=== PATIENT | female | born 1995 | race Caucasian/White ===

== ENCOUNTER 2019-02-14 16:55 | Emergency (ER) | payer OTHER ==
[2019-02-14 17:05] VITALS: BP 122/62
[2019-02-14] MEDS ORDERED: CEPHALEXIN 500 MG CAPSULE PO ONE (17:27)
--- NOTE | 2019-02-14 17:28 | ER Document Report ---
HPI - HPI Patient complains to provider of: abscess face Time Seen by Provider: 02/14/19 17:17 Pain Level: 3 Context: 23-year-old female presents the emergency department for concern for an abscess after "anti-eyebrow" placement about a month ago. She says when it was placed on her right maxillary area of her cheek it became infected so she removed it approximately 3 weeks ago. Since that she noticed a little hard nodule there and then over the last couple of days it has started swelling, has become red. She says her tried to "pop yesterday and she thinks it made it worse. She denies fevers or chills, vision changes, eye entrapment, neck stiffness, headache, any other concerning symptoms. - REPRODUCTIVE Reproductive: DENIES: : Past Medical History - Social History Smoking Status: Never Smoker Frequency of alcohol use: None Drug Abuse: None Family History: None Patient has suicidal ideation: No Patient has homicidal ideation: No Renal/ Medical History: Denies: Hx Peritoneal Dialysis Psychiatric Medical History: Reports: Hx Depression Vertical Provider Document - CONSTITUTIONAL Notes: PHYSICAL EXAMINATION: Reviewed vital signs and charting by RN GENERAL: Alert, interacts well. No acute distress. HEAD: Normocephalic, atraumatic. EYES: Pupils equal and round. Extraocular movements intact. ENT: Oral mucosa moist, tongue midline. NECK: Full range of motion. Trachea midline. LUNGS: Clear to auscultation bilaterally, no wheezes, rales, or rhonchi. No resp iratory distress. HEART: Regular rate and rhythm. No murmur ABDOMEN: soft, non-tender. No distention. Bowel sounds present EXTREMITIES: Moves all 4 extremities spontaneously. No edema, No cyanosis. PSYCH: Normal affect, normal mood. SKIN: Warm, dry, normal turgor. 3 mm x 2 mm raised red area just below the right eye with no discharge. Area is fluctuant - INFECTION CONTROL TRAVEL OUTSIDE OF THE [place] IN LAST 30 DAYS: No Course - Re-evaluation Re-evalutation: 02/14/19 17:25 ID removed a small area of fluctuance and was able to express purulent discharge from the area approximately 1 mL. A wound culture was sent. Plan is to place her on Keflex and she is been given strict return precautions. - Vital Signs Vital signs: Temp Pulse Resp BP Pulse Ox 99.0 F 93 16 122/62 99 02/14/19 17:01 02/14/19 17:01 02/14/19 17:01 02/14/19 17:01 02/14/19 17:01 Discharge - Discharge Clinical Impression: Abscess Condition: Good Disposition: HOME, SELF-CARE Additional Instructions: You were seen in the emergency department this afternoon for a small abscess/very mild cellulitis. We have placed you on Keflex 500 mg that you will take 4 times per day for 5 days. We also sent some of the purulent discharge to the lab for culture. If it does grow something that is resistant to Keflex she will be contacted by the culture nurse and we will adjust treatment as needed. If you develop fevers, eye entrapment i.e. you cannot move your eye, the area of redness and swelling gets worse after being on antibiotics for 72 hours, or you have any other concerning symptoms please immediately return to the emergency department.
== END 2019-02-14 17:47 | disposition home or self-care (01) ==
LOC: ER 16:55
PROC: 0H91XZZ Drainage of Face Skin, External Approach (ICD-10-PCS; principal; 2019-02-14)
DX: L02.01 Cutaneous abscess of face (principal)
CPT/HCPCS: 87070; 87075; 87205; 99282

== ENCOUNTER 2019-10-11 04:55 | Inpatient (IN) | payer OTHER ==
[2019-10-10 08:55] LABS: ABSOLUTE EOSINOPHILS # (AUTO) 0.1 10^3/uL (0.0-0.6); ABSOLUTE LYMPHOCYTES (AUTO) 1.4 10^3/uL (0.5-4.7); ABSOLUTE MONOCYTES (AUTO) 0.3 10^3/uL (0.1-1.4); ABSOLUTE NEUT (AUTO) 4.4 10^3/uL (1.7-8.2); BASOPHILS % (AUTO) 0.5 % (0-2); HEMATOCRIT 28.6 % (36.0-47.0); HEMOGLOBIN 9.6 g/dL (12.0-15.5); LYMPHOCYTES % (AUTO) 21.9 % (13-45); MEAN CORPUSCULAR HEMOGLOBIN 28.6 pg (27.0-33.4); MEAN CORPUSCULAR HGB CONC 33.5 g/dL (32.0-36.0); MEAN CORPUSCULAR VOLUME 85 fl (80-97); MONOCYTES % (AUTO) 5.6 % (3-13); PLATELET COUNT 197 10^3/uL (150-450); RED BLOOD COUNT 3.35 10^6/uL (3.72-5.28); RED CELL DISTRIBUTION WIDTH 15.3 % (11.5-14.0); TOTAL CELLS COUNTED % (AUTO) 100 %; WHITE BLOOD COUNT 6.2 10^3/uL (4.0-10.5)
[2019-10-10 08:59] LABS: APPEARANCE,URINE CLOUDY; BILIRUBIN,URINE NEGATIVE (NEGATIVE); GLUCOSE, URINE 50 mg/dL (NEGATIVE); KETONES,URINE TRACE mg/dL (NEGATIVE); LEUKOCYTE ESTERASE,URINE LARGE (NEGATIVE); NITRITE,URINE NEGATIVE (NEGATIVE); PROTEIN,URINE 30 mg/dL (NEGATIVE); URINE SPECIFIC GRAVITY 1.023
[2019-10-10 09:03] LABS: COLOR,URINE YELLOW
[2019-10-10 09:21] LABS: URINE AMPHETAMINES SCREEN NEGATIVE; URINE BARBITURATES SCREEN NEGATIVE; URINE COCAINE SCREEN NEGATIVE; URINE MARIJUANA (THC) SCREEN NEGATIVE; URINE METHADONE SCREEN NEGATIVE; URINE PHENCYCLIDINE SCREEN NEGATIVE
[2019-10-10 09:42] LABS: URINE BENZODIAZEPINES SCREEN UNCONFIRMED POSITIVE
[2019-10-11] MEDS ORDERED: LIDOCAINE 0.5% INJ-PF (5 MG/ML) 50 ML SDV SUBCUT PRN (05:00)
[2019-10-11] MEDS ORDERED: CEFAZOLIN SODIUM 2 GM in DEXTROSE 5%-WATER 100 ML IV PRN (05:00)
[2019-10-11] MEDS: LACTATED RINGERS 1000 ML IV PRN ×2 (05:30→17:42)
[2019-10-11] MEDS ORDERED: OXYTOCIN 10 UNIT/ML VIAL ONE (07:28)
[2019-10-11] MEDS ORDERED: PHENYLEPHRINE HCL INJ/PF 10 MG/1 ML SDV ONE ×2 (07:28→07:29)
[2019-10-11] MEDS ORDERED: KETOROLAC TROMETHAMINE INJ/PF 30 MG/1 ML SDV ONE (07:28)
[2019-10-11] MEDS ORDERED: OXYTOCIN/NORMAL SALINE 20 UNIT/1,000 ML RTUINJ ONE (07:28)
[2019-10-11] MEDS ORDERED: FENTANYL CITRATE INJ/PF 100 MCG/2 ML AMPUL ONE (07:28)
[2019-10-11] MEDS ORDERED: ACETAMINOPHEN 1,000 MG/100 ML RTUPB IV ONE (07:29)
[2019-10-11] MEDS ORDERED: ONDANSETRON HCL INJ/PF 4 MG/2 ML SDV ONE (07:29)
[2019-10-11] MEDS ORDERED: MORPHINE SULFATE 10 MG/ML INJ IV PRN (08:31)
[2019-10-11] MEDS ORDERED: FENTANYL CITRATE INJ/PF 100 MCG/2 ML AMPUL IV PRN ×3 (08:31)
[2019-10-11] MEDS ORDERED: MEPERIDINE HCL/PF INJ 25 MG/1 ML DISP.SYRIN IV PRN (08:31)
[2019-10-11] MEDS ORDERED: DIPHENHYDRAMINE HCL 50 MG/ML VIAL IV PRN (08:31)
[2019-10-11] MEDS ORDERED: PROMETHAZINE HCL INJ 25 MG/1 ML VIAL IV PRN ×2 (08:31→08:43)
[2019-10-11] MEDS ORDERED: RINGERS SOLUTION,LACTATED 1,000 ML IV PRN (08:43)
[2019-10-11] MEDS ORDERED: DIPH/PERTUSS(ACELL)/TETANUS VAC/PF 0.5 ML SYR (>=10YO) IM PRN (08:43)
[2019-10-11] MEDS ORDERED: SIMETHICONE 80 MG TAB.CHEW PO PRN (08:43)
[2019-10-11] MEDS ORDERED: OXYCODONE-ACETAMINOPHEN 5-325 MG TABLET PO PRN (08:43)
[2019-10-11] MEDS ORDERED: OXYTOCIN/NORMAL SALINE 20 UNIT/1,000 ML RTUINJ IV PRN (08:43)
[2019-10-11] MEDS ORDERED: ACETAMINOPHEN 325 MG TABLET PO PRN (08:43)
[2019-10-11] MEDS ORDERED: MEASLES,MUMPS&RUBELLA VACC/PF 0.5 ML VIAL SUBCUT PRN (08:43)
--- NOTE | 2019-10-11 08:50 | Operative Report ---
Operative Report DATE OF SURGERY: 10/11/19 PREOPERATIVE DIAGNOSIS: IUP @ 39 wks, history of with HSV infection POSTOPERATIVE DIAGNOSIS: Same OPERATION: Primary low transverse hysterotomy section SURGEON: ESA RODRIGUEZ ANESTHESIA: Spinal COMPLICATIONS: None ESTIMATED BLOOD LOSS: 600 cc INTRAOPERATIVE FINDINGS: female in cephalic presentation PROCEDURE: PROCEDURE IN DETAIL: The patient was taken to the operating room, prepared and draped in a normal sterile fashion in a supine position with a leftward tilt. A transverse skin incision was made with a scalpel and carried through to the underlying layer of fascia with the same scalpel. The fascia was excised in the midline and extended laterally with Natalee. The fascia was then dissected from the rectus muscle sharply with Natalee and the rectus muscle was divided and the peritoneal cavity was entered sharply with the same Metzenbaum. With good visualization of the bladder and the uterus the bladder blade was inserted. The hysterotomy was nicked with a scalpel and extended laterally with surgeon finger fraction. The infant was then delivered atraumatically. The nose and mouth were suctioned with a suction bulb, the cord was clamped and cut and handed off to awaiting pediatricians. Cord blood was collected. The placenta was removed manually. The uterus was exteriorized and cleared of clots and debris. The hysterotomy was closed with 0 Monocryl in a running, locked fashion. A second layer of the same suture was used to imbricate to ensure hemostasis. The uterus was returned to the abdomen and peritoneal cavity was cleared of clots and debris. The rectus muscle and peritoneum were repaired with mattress stitch of 2-0 Chromic. The fascia was closed with 0-Vicryl. The subcutaneous layer was closed with plain catgut and the skin was closed with 4-0 Vicryl. The patient tolerated the procedure well. Sponge, lap, and needle counts correct x2 and the patient was taken to recovery in stable condition.
[2019-10-11] MEDS ORDERED: ACETAMINOPHEN 1,000 MG/100 ML RTUPB IV PRN (10:00)
[2019-10-11] MEDS ORDERED: MORPHINE SULFATE 10 MG/ML INJ ONE (10:22)
[2019-10-11] MEDS: MORPHINE SULFATE 10 MG/ML INJ IV PRN ×2 (10:25→14:11)
[2019-10-11] MEDS: DOCUSATE SODIUM 100 MG CAPSULE PO SCH ×2 (11:38→17:40)
[2019-10-11] MEDS: PRENATAL VITAMIN W DHA CAPSULE PO SCH (11:38)
[2019-10-11] MEDS: IBUPROFEN 800 MG TABLET PO SCH ×2 (11:57→17:57)
[2019-10-11] MEDS: OXYCODONE-ACETAMINOPHEN 5-325 MG TABLET PO PRN ×3 (12:31→22:26)
[2019-10-11] MEDS: KETOROLAC TROMETHAMINE INJ/PF 30 MG/1 ML SDV IV SCH ×2 (15:27→21:17)
[2019-10-12] MEDS: IBUPROFEN 800 MG TABLET PO SCH ×4 (03:21→21:35)
[2019-10-12] MEDS: OXYCODONE-ACETAMINOPHEN 5-325 MG TABLET PO PRN ×4 (03:51→17:34)
[2019-10-12 07:20] LABS: HEMATOCRIT 26.3 % (36.0-47.0); HEMOGLOBIN 8.9 g/dL (12.0-15.5); MEAN CORPUSCULAR HEMOGLOBIN 28.7 pg (27.0-33.4); MEAN CORPUSCULAR HGB CONC 33.7 g/dL (32.0-36.0); MEAN CORPUSCULAR VOLUME 85 fl (80-97); PLATELET COUNT 164 10^3/uL (150-450); RED BLOOD COUNT 3.09 10^6/uL (3.72-5.28); WHITE BLOOD COUNT 7.5 10^3/uL (4.0-10.5)
[2019-10-12] MEDS ORDERED: FERRIC CARBOXYMALTOSE INJ 750 MG/15 ML VIAL IV ONE (09:39)
[2019-10-12] MEDS ORDERED: FERRIC CARBOXYMALTOSE 750 MG in NORMAL SALINE 250 ML IV ONE (11:00)
[2019-10-12] MEDS: DOCUSATE SODIUM 100 MG CAPSULE PO SCH ×2 (11:13→17:34)
[2019-10-12] MEDS: PRENATAL VITAMIN W DHA CAPSULE PO SCH (11:13)
--- NOTE | 2019-10-12 14:10 | PDOC PROGRESS REPORT ---
Subjective-OB Progress Note for:: 10/12/19 Subjective: 23yo G2 now P2 s/p primary ppd1. Pt. ambulating and voiding without difficulty. Denies SOB/dizziness or other concerns. Baby in NICU Physical Exam (OB) Vital Signs: Temp Pulse Resp BP Pulse Ox 97.5 F 68 16 142/62 H 96 10/12/19 07:17 10/12/19 07:17 10/12/19 07:17 10/12/19 07:17 10/12/19 07:17 Intake & Output 10/11/19 10/12/19 10/13/19 06:59 06:59 06:59 Intake Total 1000 Output Total 2640 Balance 1000 -2640 - General General Appearance: Appears well In distress: None - PIH/Pre-Eclampsia Clonus: Negative Headache: Absent Epigastric Pain: No Visual Changes: No - Dressing Removed: No Incision: Dressing Closure Type: opsite - Lochia Lochia Amount: Moderate 25-50 ml Lochia Color: Rubra/Red - Abdomen Description: Soft Hernia Present: No Fundal Description: Midline Fundal Height: u/u - u/2 - Respiratory Respiratory Status: No respiratory distress - Extremities Upper extremity: Normal inspection Lower extremities: Normal inspection - Neurological Cognition: Normal Orientation: AAOx4 - Psychological Associated symptoms: Normal affect, Normal mood Objective-Diagnostic Laboratory: 10/12/19 06:50 10/12/19 06:50 WBC 7.5 RBC 3.09 L Hgb 8.9 L Hct 26.3 L MCV 85 MCH 28.7 MCHC 33.7 RDW 15.0 H Plt Count 164 Assessment and Plan(PN) - Assessment and Plan (1) Status post primary low transverse section Is this a current diagnosis for this admission?: Yes Plan: Routine pp care (2) Anemia complicating , third trimester Is this a current diagnosis for this admission?: Yes Plan: increase dietary iron and FeSO4 BID. IV Iron ordered (3) Elevated blood pressure reading Is this a current diagnosis for this admission?: Yes Plan: continue to monitor for s/s of pre-e - Time Spent with Patient Time with patient: Less than 15 minutes Medications reviewed and adjusted accordingly: Yes - Disposition Anticipated Discharge: Home Within: within 24 hours
[2019-10-13] MEDS: IBUPROFEN 800 MG TABLET PO SCH ×2 (02:36→09:57)
[2019-10-13] MEDS: OXYCODONE-ACETAMINOPHEN 5-325 MG TABLET PO PRN (04:34)
[2019-10-13] MEDS: PRENATAL VITAMIN W DHA CAPSULE PO SCH (09:56)
[2019-10-13] MEDS: DOCUSATE SODIUM 100 MG CAPSULE PO SCH (09:56)
--- NOTE | 2019-10-13 10:21 | PDOC DISCHARGE SUMMARY ---
Impression - Admit/DC Date/PCP Admission Date/Primary Care Provider: 10/11/19 04:55 Discharge Date: 10/13/19 - Discharge Diagnosis (1) Elevated blood pressure reading Is this a current diagnosis for this admission?: Yes (2) Status post primary low transverse section Is this a current diagnosis for this admission?: Yes (3) Pre-eclampsia affecting childbirth Is this a current diagnosis for this admission?: No (4) Anemia complicating , third trimester Is this a current diagnosis for this admission?: Yes - Additional Information Resuscitation Status: Full Code Discharge Diet: Regular Discharge Activity: Balance Activity w/Rest, No Lifting Over 10 Pounds, No Lifting/Push/Pulling, Pelvic Rest, No tub bath Prescriptions: Docusate Sodium [Colace 100 mg Capsule] 100 mg PO BID #60 capsule Ibuprofen [Motrin 800 mg Tablet] 800 mg PO Q8HP PRN #60 tablet PRN Reason: Oxycodone HCl/Acetaminophen [Percocet 5-325 mg Tablet] 1 tab PO Q4HP PRN #30 tablet PRN Reason: Home Medications: Sertraline HCl [Zoloft 50 mg Tablet] 100 mg PO DAILY 10/05/19 Docusate Sodium [Colace 100 mg Capsule] 100 mg PO BID #60 capsule 10/13/19 Ibuprofen [Motrin 800 mg Tablet] 800 mg PO Q8HP PRN #60 tablet 10/13/19 Oxycodone HCl/Acetaminophen [Percocet 5-325 mg Tablet] 1 tab PO Q4HP PRN #30 tablet 10/13/19 Results Laboratory Results: WBC 7.5 10^3/uL (4.0-10.5) 10/12/19 06:50 RBC 3.09 10^6/uL (3.72-5.28) L 10/12/19 06:50 Hgb 8.9 g/dL (12.0-15.5) L 10/12/19 06:50 Hct 26.3 % (36.0-47.0) L 10/12/19 06:50 MCV 85 fl (80-97) 10/12/19 06:50 MCH 28.7 pg (27.0-33.4) 10/12/19 06:50 MCHC 33.7 g/dL (32.0-36.0) 10/12/19 06:50 RDW 15.0 % (11.5-14.0) H 10/12/19 06:50 Plt Count 164 10^3/uL (150-450) 10/12/19 06:50 Lymph % (Auto) 21.9 % (13-45) 10/10/19 08:12 [place] % (Auto) 5.6 % (3-13) 10/10/19 08:12 Eos % (Auto) 1.0 % (0-6) 10/10/19 08:12 Baso % (Auto) 0.5 % (0-2) 10/10/19 08:12 Absolute Neuts (auto) 4.4 10^3/uL (1.7-8.2) 10/10/19 08:12 Absolute Lymphs (auto) 1.4 10^3/uL (0.5-4.7) 10/10/19 08:12 Absolute Monos (auto) 0.3 10^3/uL (0.1-1.4) 10/10/19 08:12 Absolute Eos (auto) 0.1 10^3/uL (0.0-0.6) 10/10/19 08:12 Absolute Basos (auto) 0.0 10^3/uL (0.0-0.2) 10/10/19 08:12 Seg Neutrophils % 71.0 % (42-78) 10/10/19 08:12 Urine Color YELLOW 10/10/19 08:30 Urine Appearance CLOUDY 10/10/19 08:30 Urine pH 6.0 (5.0-9.0) 10/10/19 08:30 Ur Specific [place] 1.023 10/10/19 08:30 Urine Protein 30 mg/dL (NEGATIVE) H 10/10/19 08:30 Urine Glucose (UA) 50 mg/dL (NEGATIVE) H 10/10/19 08:30 Urine Ketones TRACE mg/dL (NEGATIVE) H 10/10/19 08:30 Urine Blood NEGATIVE (NEGATIVE) 10/10/19 08:30 Urine Nitrite NEGATIVE (NEGATIVE) 10/10/19 08:30 Urine Bilirubin NEGATIVE (NEGATIVE) 10/10/19 08:30 Urine Urobilinogen 2.0 mg/dL (<2.0) H 10/10/19 08:30 Ur Leukocyte Esterase LARGE (NEGATIVE) H 10/10/19 08:30 Urine WBC (Auto) 51 /HPF 10/10/19 08:30 Urine RBC (Auto) 2 /HPF 10/10/19 08:30 Urine Bacteria (Auto) TRACE /HPF 10/10/19 08:30 Squamous Epi Cells Auto 30 /HPF 10/10/19 08:30 Urine Mucus (Auto) OCC /LPF 10/10/19 08:30 Urine Ascorbic Acid 20 (NEGATIVE) H 10/10/19 08:30 Urine Opiates Screen NEGATIVE 10/10/19 08:30 Urine Methadone Screen NEGATIVE 10/10/19 08:30 Ur Barbiturates Screen NEGATIVE 10/10/19 08:30 Ur Phencyclidine Scrn NEGATIVE 10/10/19 08:30 Ur Amphetamines Screen NEGATIVE 10/10/19 08:30 U Benzodiazepines Scrn UNCONFIRMED POSITIVE 10/10/19 08:30 U Benzodiazepine Confm Negative ([id number]) 10/10/19 08:12 Urine Cocaine Screen NEGATIVE 10/10/19 08:30 U Marijuana (THC) Screen NEGATIVE 10/10/19 08:30 Blood Type A POSITIVE 10/10/19 08:12 Antibody Screen NEGATIVE 10/10/19 08:12 Plan Plan of Treatment: follow up at [facility] in one week for incision check
[2019-10-13 15:05] VITALS: BP 146/75
== END 2019-10-13 15:25 | disposition home or self-care (01) | DRG 788 ==
LOC: 2S 04:55
PROVIDERS: ADMIT Obstetrics & Gynecology; ATTEND Obstetrics & Gynecology
PROC: 10D00Z1 Extraction of Products of Conception, Low, Open Approach (ICD-10-PCS; principal; 2019-10-11 07:45)
DX: O14.94 Unspecified pre-eclampsia, complicating childbirth (principal); O99.013 Anemia complicating pregnancy, third trimester; D64.9 Anemia, unspecified; Z28.21 Immunization not carried out because of patient refusal; Z37.0 Single live birth
CPT/HCPCS: 1961; 36415; 59025; 80307; 81001; 85025; 85027; 86850; 86900; 86901; 94760; 94799; G0480; J0131; J0690; J1439; J1885; J2270; J2370; J2405; J2550; J2590; J3010; J3490; J7050; J7060; J7120

== ENCOUNTER → 2020-03-23 | Outpatient (CLI) | payer OTHER ==
[2020-03-23 14:19] LABS: ABSOLUTE EOSINOPHILS # (AUTO) 0.1 10^3/uL (0.0-0.6); ABSOLUTE LYMPHOCYTES (AUTO) 1.1 10^3/uL (0.5-4.7); ABSOLUTE MONOCYTES (AUTO) 0.3 10^3/uL (0.1-1.4); ABSOLUTE NEUT (AUTO) 2.8 10^3/uL (1.7-8.2); BASOPHILS % (AUTO) 0.7 % (0-2); EOSINOPHILS % (AUTO) 2.1 % (0-6); HEMATOCRIT 38.4 % (36.0-47.0); HEMOGLOBIN 13.3 g/dL (12.0-15.5); LYMPHOCYTES % (AUTO) 25.3 % (13-45); MEAN CORPUSCULAR HEMOGLOBIN 30.2 pg (27.0-33.4); MEAN CORPUSCULAR HGB CONC 34.5 g/dL (32.0-36.0); MEAN CORPUSCULAR VOLUME 87 fl (80-97); MONOCYTES % (AUTO) 7.1 % (3-13); PLATELET COUNT 237 10^3/uL (150-450); RED CELL DISTRIBUTION WIDTH 13.3 % (11.5-14.0); SEGMENTED NEUTROPHILS % (AUTO) 64.8 % (42-78); TOTAL CELLS COUNTED % (AUTO) 100 %; WHITE BLOOD COUNT 4.3 10^3/uL (4.0-10.5)
[2020-03-23 14:47] LABS: ALBUMIN 4.4 g/dL (3.5-5.0); ALKALINE PHOSPHATASE 59 U/L (38-126); ANION GAP 10 (5-19); ASPARTATE AMINO TRANSFERASE 17 U/L (14-36); BILIRUBIN,DIRECT 0.3 mg/dL (0.0-0.4); BILIRUBIN,TOTAL 0.4 mg/dL (0.2-1.3); BLOOD UREA NITROGEN 14 mg/dL (7-20); CALCIUM 9.7 mg/dL (8.4-10.2); CARBON DIOXIDE 26 mmol/L (22-30); CHLORIDE 105 mmol/L (98-107); GLUCOSE 101 mg/dL (75-110); POTASSIUM 4.2 mmol/L (3.6-5.0); TOTAL PROTEIN 6.9 g/dL (6.3-8.2); TRIGLYCERIDES 70 mg/dL (<150)
[2020-03-23 14:57] LABS: DIRECT LDL 121 mg/dL (<100)
[2020-03-23 15:02] LABS: FREE T4 (FREE THYROXINE) 1.02 ng/dL (0.78-2.19)
[2020-03-23 15:16] LABS: THYROID STIMULATING HORMONE 0.83 uIU/mL (0.47-4.68)
== END ==
LOC: OD 13:39
PROVIDERS: ATTEND Nurse Practitioner Psychiatric/Mental Health
DX: F41.1 Generalized anxiety disorder (principal); F90.2 Attention-deficit hyperactivity disorder, combined type; Z79.899 Other long term (current) drug therapy
CPT/HCPCS: 36415; 80053; 80061; 84439; 84443; 85025